=== PATIENT | male | born 1965 | race African-American/Black ===

== ENCOUNTER 2020-02-14 12:24 | Emergency (ER) | payer OTHER ==
[~2020-02-14] VITALS: Ht 170.2 cm; Wt 59.0 kg
[~2020-02-14 12:24] MED LIST: BACTRIM DS TAB1 EACH PO; CYCLOBENZAPRINE5 MG PO; FLEXERIL PO; IBUPROFEN 800800 M1 PO; IBUPROFEN 800800 MG PO; NAPROSYN500 MG PO; NORCO 5-325 TA1 EACH PO; TRAMADOL 50 MG50 MG PO
[2020-02-14] MEDS ORDERED: NORCO 5-325 TA1 EAC2 PO (14:39)
[2020-02-14] MEDS ORDERED: LIDODERM1 EACH TOP (14:39)
[2020-02-14 14:42] VITALS: BP 133/74
== END 2020-02-14 14:45 | disposition home or self-care (01) ==
LOC: ER 12:24
DX: S20.211A Contusion of right front wall of thorax, initial encounter (principal); Z79.1 Long term (current) use of non-steroidal anti-inflammatories (NSAID); Z79.899 Other long term (current) drug therapy; V86.99XA Unspecified occupant of other special all-terrain or other off-road motor vehicle injured in nontraffic accident, initial encounter; Y93.89 Activity, other specified; Y92.89 Other specified places as the place of occurrence of the external cause; Y99.8 Other external cause status